=== PATIENT | male | born 1995 | race African-American/Black ===

== ENCOUNTER 2017-05-26 19:50 | Emergency (ER) | payer OTHER ==
[~2017-05-26] VITALS: Ht 182.9 cm; Wt 106.3 kg
[2017-05-26 20:02] VITALS: BP 116/69
== END 2017-05-26 20:44 | disposition home or self-care (01) ==
LOC: ED 20:10
DX: S03.2XXA Dislocation of tooth, initial encounter (principal); X58.XXXA Exposure to other specified factors, initial encounter; Y93.89 Activity, other specified; Y92.89 Other specified places as the place of occurrence of the external cause; Y99.8 Other external cause status
CPT/HCPCS: 99283